=== PATIENT | female | born 1930 | race Caucasian/White ===

== ENCOUNTER 2017-06-03 22:45 | Inpatient (IN) | payer OTHER, BC ==
[~2017-06-03] VITALS: Ht 170.2 cm; Wt 60.1 kg
--- NOTE | ~2017-06-03 | EKG ---
[address] [employer] 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 : 1930 Requested By: Gaye Araujo Order Number: [id number] MD: Ad Carson Measurements Intervals [place] Rate: 73 P: -41 CO: 194 QRS: -30 QRSD: 97 T: 27 QT: 420 QTc: 463 Interpretive Statements Sinus rhythm Left ventricular hypertrophy Baseline wander in lead(s) III Compared to ECG 10/29/2016 12:22:25 Atrial fibrillation no longer present ST (T wave) deviation no longer present Electronically Signed On 06-07-2017 12:55:53 CDT by Ad Carson [email or web address] <ELECTRONICALLY SIGNED> By: Ad Carson MD, [facility] 06/07/17 1255 [id number] [id number] Ad Carson MD, [facility] /EPI
[~2017-06-03 22:45] MED LIST: ASPIR 8181 MG PO; B COMPLEX-VITA1 EACH PO; CALCIUM 600 +1 EAC1 PO; CARDIZEM CD 18180 M3 PO; CEFTIN500 MG PO; COUMADIN 2.5MG2.5 M1 PO; COUMADIN 5 MG TA5 M1 PO; DUONEB 2.5-0.5 M3 ML INH; ELIQUIS5 MG PO; FOSAMAX 70 MG T70 M1 PO; HYDROCHLOROTHIA25 M1 PO; K-DUR10 MEQ PO; KEFLEX500 MG PO; LISINOPRIL10 MG PO; MUCINEX TA600 MG/TAB PO; OMEPRAZOLE 20 M20 M1 PO; OXYBUTYNIN 5 MG5 M1 PO; PLAVIX 75 MG TA75 M1 PO; PREDNISONE 20 M20 MG PO; PREMARIN0.3 MG PO; SIMVASTATIN20 MG PO; TOPROL XL50 MG PO; UNICOMPLEX M TA1 TA1 PO
[2017-06-03 22:46] VITALS: BP 178/91
[2017-06-03] MEDS ORDERED: TYLENOL325 MG (23:58)
[2017-06-03] MEDS ORDERED: VITAMIN D2000 UNIT PO (23:58)
[2017-06-04 02:08] LABS: HEMATOCRIT 37.9 % (37.0-47.0); MCH 30.9 pg (26.0-34.0); MCHC 34.4 g/dL (28.0-37.0); MCV 89.9 fL (80.0-100.0); PLATELET COUNT 184 thou/uL (150-400); RBC 4.22 mil/uL (4.20-5.00); WBC 5.6 thou/uL (4.0-11.0)
[2017-06-04 02:10] LABS: MANUAL DIFF YES
[2017-06-04 02:15] LABS: ANION GAP 7 mmol/L (7-16); BUN 14 mg/dL (7-18); CHLORIDE 100 mmol/L (98-107); CO2 31 mmol/L (21-32); GLUCOSE 143 mg/dL (74-106); POTASSIUM 3.4 mmol/L (3.5-5.1); SODIUM 138 mmol/L (136-145)
[2017-06-04 02:24] LABS: TROPONIN-I < 0.04 ng/mL (<0.04-0.07)
[2017-06-04 02:48] LABS: ABSOLUTE NEUTROPHILS 4.9 thou/uL (1.4-8.2); PLATELET ESTIMATE NORMAL; TOTAL CELL COUNT 100
[2017-06-04 03:34] VITALS: BP 146/72
[2017-06-04 05:04] VITALS: BP 136/69
[2017-06-04 07:34] VITALS: BP 134/81
[2017-06-04 16:00] VITALS: BP 140/79
[2017-06-04 20:00] VITALS: BP 120/62
[2017-06-05 04:00] VITALS: BP 134/59
[2017-06-05 06:29] LABS: HEMATOCRIT 37.2 % (37.0-47.0); HEMOGLOBIN 12.7 gm/dL (12.0-15.0); MCH 30.8 pg (26.0-34.0); MCV 90.5 fL (80.0-100.0); RBC 4.11 mil/uL (4.20-5.00); WBC 5.6 thou/uL (4.0-11.0)
[2017-06-05 06:31] LABS: CALCIUM 8.8 mg/dL (8.5-10.1); CREATININE 1.1 mg/dL (0.6-1.0); POTASSIUM 3.4 mmol/L (3.5-5.1)
[2017-06-05 08:00] VITALS: BP 140/78
[2017-06-05] MEDS ORDERED: ANTIVERT25 MG PO (08:54)
[2017-06-05] MEDS ORDERED: CORTISPORIN OTI10 ML OTIC (08:55)
[2017-06-05 15:39] VITALS: BP 115/69
[2017-06-05 20:05] VITALS: BP 147/77
[2017-06-06 04:00] VITALS: BP 150/82
[2017-06-06 07:29] VITALS: BP 126/65
[2017-06-06 16:25] VITALS: BP 118/66
[2017-06-06 20:00] VITALS: BP 98/50
[2017-06-07 04:00] VITALS: BP 108/56
[2017-06-07 09:11] VITALS: BP 139/65
[2017-06-07 16:18] VITALS: BP 117/65
[2017-06-07 19:41] VITALS: BP 115/54
[2017-06-08 03:29] VITALS: BP 131/59
[2017-06-08 07:33] VITALS: BP 161/87
== END 2017-06-08 18:19 | DRG 149 ==
LOC: ER 22:45 → EROBS 06-04 03:02 → 4E 06-04 03:02
PROVIDERS: Emergency Medicine; Nurse Practitioner Family
DX: H83.02 Labyrinthitis, left ear (principal); H81.10 Benign paroxysmal vertigo, unspecified ear; H81.02 Meniere's disease, left ear; Z96.642 Presence of left artificial hip joint; I10 Essential (primary) hypertension; E78.5 Hyperlipidemia, unspecified; I48.91 Unspecified atrial fibrillation; H91.92 Unspecified hearing loss, left ear; I25.10 Atherosclerotic heart disease of native coronary artery without angina pectoris; Z90.49 Acquired absence of other specified parts of digestive tract; Z90.710 Acquired absence of both cervix and uterus; Z98.49 Cataract extraction status, unspecified eye; Z88.6 Allergy status to analgesic agent; Z88.2 Allergy status to sulfonamides; Z88.7 Allergy status to serum and vaccine; Z88.8 Allergy status to other drugs, medicaments and biological substances; I25.2 Old myocardial infarction; Z82.49 Family history of ischemic heart disease and other diseases of the circulatory system; Z80.9 Family history of malignant neoplasm, unspecified; Z79.899 Other long term (current) drug therapy
CPT/HCPCS: 10783

== ENCOUNTER 2017-12-23 17:13 | Inpatient (IN) | payer OTHER, BC ==
[~2017-12-23] VITALS: Ht 170.2 cm; Wt 59.4 kg
--- NOTE | ~2017-12-23 | HC ---
[facility] [place] [address] CONSULTATION Name: EVERARDO NEFF Room #: 405-P [facility] IN M.R.#: [id number] Admission: 12/23/17 Attend Phys: Tyrell Keller MD Discharge: 12/26/17 Date of : [birth year] Report #: [id number] THIS REPORT FOR: //name// CC: Tyrell Osborn DATE OF SERVICE: 12/25/2017 HISTORY OF PRESENT ILLNESS: The patient is an 87-year-old white female who was admitted after having a fall with some dizziness and a vertiginous episode. She complained of left hip pain. She has a prior left hip prosthesis and was thought to have a small left hip periprosthetic fracture there, although it may be an old finding. She has been seen by Orthopedics and the recommendation is for partial weightbearing and see how she does. We are seeing her in rehabilitation medicine consultation. PAST MEDICAL HISTORY: Includes prior left hip replacement, history of laparoscopic cholecystectomy, tonsillectomy, appendectomy, hysterectomy, hypertension, hyperlipidemia, ST elevation [place], cataracts, and atrial fibrillation. HABITS: No history of tobacco or alcohol abuse. FAMILY HISTORY: Heart disease, cancer, and hypertension. ALLERGIES: Multiple allergies are as noted. SOCIAL HISTORY: Lives in a house alone, does not utilize any gait aids, 4 steps in. She does have a couple of walkers from her prior hip surgery, but was not needing to use them typically. She does have railings in the house as it is noted to be a tri-level. REVIEW OF SYSTEMS: Did not offer any current complaints of chest pain, shortness of breath, or abdominal discomfort. Left hip discomfort appears to be improving. No other focal extremity pain complaints. PHYSICAL EXAMINATION: GENERAL: An 87-year-old white female, in no obvious distress. She is hard of hearing. VITAL SIGNS: Temperature is 98.8, pulse 71, respirations 15, blood pressure 133/72. The patient is alert. HEENT: Appeared to be benign. NEUROLOGIC: Cranial nerves are grossly intact. Facies are symmetric. She has functional range of motion of both upper extremities with strength of grade 4-4+/5. DTRs are trace to 1. In her lower extremities, she has the old left hip incision, which is well healed. No focal calf swelling. She can dorsiflex [facility] [address] [place] [address] CONSULTATION Name: EVERARDO NEFF Room #: 405-P [facility] IN M.R.#: [id number] Admission: 12/23/17 Attend Phys: Tyrell Keller MD Discharge: 12/26/17 Date of : [birth year] Report #: [id number] the left ankle. Right lower extremity strength is probably a grade 4/5. Left lower extremity limited testing, was probably a grade 4-. She is min assist for sit to stand. Gait, 40 feet min assist with a front-wheeled walker. Bed mobility is min assist. ASSESSMENT: An 87-year-old white female with the following problem list: 1. Left periprosthetic hip fracture, being limited to partial weightbearing. She is being handled nonsurgically at this point. 2. Fall, thought secondary to dizziness. 3. History of dizziness and vertiginous episode, which resolved. 4. Atrial fibrillation, which is stable. 5. Hypertension. PLAN: The rehab unit is currently full at [facility]. We will need to consider other rehab therapy options as you are doing. Thank you for asking us to assist in this patient's care. <ELECTRONICALLY SIGNED> By: Geovanni Stallings MD 01/04/18 1226 1139 2350 Geovanni Stallings MD /[facility]
--- NOTE | ~2017-12-23 | EKG ---
[address] [address] ELECTROCARDIOGRAM REPORT Name: EVERARDO NEFF Room #: 405-P ADM IN M.R.#: [id number] Admission: 12/23/17 Attend Phys: Tyrell Keller MD Discharge: Date of : [birth year] Report #: [id number] THIS REPORT FOR: //name// 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 : 1930 Requested By: Salvador Campuzano Order Number: [id number] MD: Ad Carson Measurements Intervals [place] Rate: 92 P: 60 IN: 187 QRS: -32 QRSD: 98 T: 47 QT: 383 QTc: 474 Interpretive Statements Sinus rhythm Left axis deviation Compared to ECG 06/03/2017 22:59:34 No significant change was found Electronically Signed On 12-24-2017 8:32:57 [employer]AX ASSOCIATE ATTORNEY by Ad Carson [email or web address] <ELECTRONICALLY SIGNED> By: Ad Carson MD, [facility] 12/24/17 0832 1724 23 Ad Carson MD, [facility] /EPI
--- NOTE | ~2017-12-23 | HC ---
[facility] [place] [address] CONSULTATION Name: EVERARDO NEFF Room #: 405-P ADM IN M.R.#: [id number] Admission: 12/23/17 Attend Phys: Tyrell Keller MD Discharge: Date of : [birth year] Report #: [id number] THIS REPORT FOR: //name// CC: Tyrell Osborn CHIEF COMPLAINT: Left femur fracture. HISTORY OF PRESENT ILLNESS: This 87-year-old female remains functionally independent and ambulating at home with minimal assistance. She has had a long history of problems with the left hip and femur with an old fracture and hip replacement, followed by revision surgery many years ago. She has been ambulatory, but with some intermittent discomfort. She had a fall yesterday with increased discomfort of the left hip and femur. She was able to get up and stand and walk using a walker and came by private vehicle with a friend to the hospital for evaluation. 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 There is no evidence of fracture about the pelvis or upper femur. There is an area of chronic irregularity at the distal tip of the stem. There appears to be callus formation, suggesting this is a somewhat chronic or subacute process. There is, however, a suggestion that there may be a crack there which may have been caused or aggravated by this recent fall. At the time of my evaluation, she is alert and oriented and seems to understand the situation well. She notes she does have some left thigh discomfort which is mildly aggravated by deep palpation or aggressive movement; however, the femur seems to be stable. She has good movement of the hip without much hip joint pain. She has good movement of the knee without knee joint pain. The lower leg, foot and ankle appear to be normal. X-rays of the left hip and femur reveal an old cemented revision hip arthroplasty. The tip of the stem is prominent through the lateral aspect of the femoral shaft. There is surrounding callus formation which appears to be chronic. There is also a lucent line transversely at this level, which could be a crack of indeterminate age. There is no evidence of a more significant or displaced fracture. The hip itself seems to be stable. I have had a lengthy discussion with the patient reviewing this issue. It is difficult to say whether there is a new fracture or whether this is simply the remnant of previous stress fracture, which has been symptomatically aggravated by her recent fall. Therefore, we have discussed the option of either nonsurgical management protecting the femur with limited weightbearing and allow gradually advancing activity or prophylactic surgical repair using a lateral plate which will require cerclage wires proximally and screws distally. She seems to understand these options well and at this point feels her symptoms are mild and manageable. I note that she has already been ambulating on the limb after the fall and was able to manage this independently at [place] [address] CONSULTATION Name: EVERARDO NEFF NEIL [facility] 405[facility] IN M.R.#: [id number] Admission: 12/23/17 Attend Phys: Tyrell Keller MD Discharge: Date of : [birth year] Report #: [id number] to the hospital. Given this, she is reluctant to consider any surgery and would like to try to simply protect the femur and allow this to heal in if possible. She understands that if there is more pain or certainly any displacement, then we will have to reconsider the option of surgical stabilization. She understands there is some possibility the fracture might displace, become a more difficult situation. At this point, I think conservative nonsurgical treatment is a reasonable option. Given this, we will allow her to go ahead and eat and try to start some physical therapy for ambulation using a walker and partial weightbearing. If she is making good progress, then I think she probably needs a period of assistance in an extended care facility until she reaches better strength and independence. Certainly if there is more pain or evidence of fracture, movement or displacement, then she will need to reconsider the option of surgical stabilization. <ELECTRONICALLY SIGNED> By: Geovanni Flores MD 12/25/17 1125 1006 1059 Geovanni Flores MD /nt
[~2017-12-23 17:13] MED LIST changes: +ANTIVERT25 MG PO; +CORTISPORIN OTI10 ML OTIC; +TYLENOL325 MG; +VITAMIN D2000 UNIT PO
[2017-12-23 17:23] VITALS: BP 143/77
[2017-12-23] MEDS ORDERED: LISINOPRIL10 MG PO (17:45)
[2017-12-23 17:54] LABS: ABSOLUTE NEUTROPHILS 8.1 thou/uL (1.4-8.2); BASOPHILS 0.8 % (0.0-2.0); EOSINOPHILS 0.7 % (0.0-3.0); HEMATOCRIT 37.9 % (37.0-47.0); LYMPHOCYTES 6.7 % (24.0-44.0); MCH 31.1 pg (26.0-34.0); MCHC 34.2 g/dL (28.0-37.0); MCV 91.1 fL (80.0-100.0); MONOCYTES 6.5 % (1.0-8.0); PLATELET COUNT 171 thou/uL (150-400); POLYS 85.3 % (36.0-66.0); RBC 4.16 mil/uL (4.20-5.00); RDW 12.5 % (10.5-14.5); WBC 9.5 thou/uL (4.0-11.0)
[2017-12-23 18:02] LABS: ANION GAP 7 mmol/L (7-16); BUN 21 mg/dL (7-18); CALCIUM 9.2 mg/dL (8.5-10.1); CHLORIDE 101 mmol/L (98-107); CO2 27 mmol/L (21-32); CREATININE 1.2 mg/dL (0.6-1.0); GLUCOSE 113 mg/dL (74-106); POTASSIUM 3.6 mmol/L (3.5-5.1); SODIUM 135 mmol/L (136-145)
[2017-12-23 18:07] LABS: PROTIME 10.5 Seconds (9.3-11.4)
[2017-12-23 18:10] LABS: ALBUMIN 3.9 g/dL (3.4-5.0); SGOT 20 U/L (15-37); SGPT 30 U/L (30-65); TOTAL BILIRUBIN 0.9 mg/dL (<0.1-1.0); TOTAL PROTEIN 6.5 g/dL (6.4-8.2); TROPONIN-I < 0.04 ng/mL (<0.06)
[2017-12-23 19:09] LABS: URINE BILIRUBIN NEGATIVE (Negative); URINE BLOOD NEGATIVE (Negative); URINE CLARITY CLEAR; URINE COLOR YELLOW; URINE GLUCOSE-RANDOM* NEGATIVE (Negative); URINE KETONES NEGATIVE (Negative); URINE LEUKOCYTES NEGATIVE (Negative); URINE NITRITE NEGATIVE (Negative); URINE PROTEIN (DIPSTICK) NEGATIVE (Negative); URINE SPECIFIC GRAVITY <= 1.005 (1.005-1.035); URINE UROBILINOGEN 0.2 E.U./dl (0.2-1.0)
[2017-12-23 22:28] VITALS: BP 136/70
[2017-12-23 22:35] VITALS: BP 130/68
[2017-12-23 23:17] VITALS: BP 144/76
[2017-12-24 04:59] LABS: CALCIUM 8.1 mg/dL (8.5-10.1); CREATININE 0.9 mg/dL (0.6-1.0); POTASSIUM 3.5 mmol/L (3.5-5.1)
[2017-12-24 05:32] LABS: HEMATOCRIT 33.7 % (37.0-47.0); HEMOGLOBIN 11.3 gm/dL (12.0-15.0); MCH 30.9 pg (26.0-34.0); MCHC 33.6 g/dL (28.0-37.0); RBC 3.66 mil/uL (4.20-5.00); RDW 12.8 % (10.5-14.5); WBC 8.1 thou/uL (4.0-11.0)
[2017-12-24 09:22] VITALS: BP 139/93
[2017-12-24 16:20] VITALS: BP 125/78
[2017-12-24 19:44] VITALS: BP 112/58
[2017-12-25 04:00] VITALS: BP 104/48
[2017-12-25 07:13] VITALS: BP 133/72
[2017-12-25 15:33] VITALS: BP 124/72
[2017-12-25 19:00] VITALS: BP 106/55
[2017-12-26 04:00] VITALS: BP 117/60
[2017-12-26 08:00] VITALS: BP 124/77
[2017-12-26] MEDS ORDERED: HYDROCODONE-AP1 EAC6 PO (09:12)
[2017-12-26] MEDS ORDERED: MIRALAX17 GM PO (09:12)
[2017-12-26] MEDS ORDERED: ELIQUIS2.5 MG PO (09:16)
[2017-12-26 10:14] VITALS: BP 124/77
[2017-12-26 17:13] VITALS: BP 94/53
== END 2017-12-26 19:02 | DRG 559 ==
LOC: ER 17:13 → 4N 18:43 → EROBS 18:43 → 4N 22:34
PROVIDERS: Hospitalist; Physician Assistant
DX: M97.02XA Periprosthetic fracture around internal prosthetic left hip joint, initial encounter (principal); N17.0 Acute kidney failure with tubular necrosis; Z96.642 Presence of left artificial hip joint; I10 Essential (primary) hypertension; E78.5 Hyperlipidemia, unspecified; I48.91 Unspecified atrial fibrillation; Z60.2 Problems related to living alone; W18.39XA Other fall on same level, initial encounter; Y93.89 Activity, other specified; Z79.899 Other long term (current) drug therapy; Z88.5 Allergy status to narcotic agent; Z98.42 Cataract extraction status, left eye; Z88.2 Allergy status to sulfonamides; Z88.8 Allergy status to other drugs, medicaments and biological substances; Z90.49 Acquired absence of other specified parts of digestive tract; Z90.710 Acquired absence of both cervix and uterus; Z98.41 Cataract extraction status, right eye; Z88.7 Allergy status to serum and vaccine; I25.2 Old myocardial infarction; Z82.49 Family history of ischemic heart disease and other diseases of the circulatory system; Z80.9 Family history of malignant neoplasm, unspecified; Y92.89 Other specified places as the place of occurrence of the external cause; Y99.8 Other external cause status
CPT/HCPCS: 10091

== ENCOUNTER 2019-05-16 21:04 | Emergency (ER) | payer OTHER, BC ==
[~2019-05-16] VITALS: Ht 170.2 cm; Wt 59.0 kg
[~2019-05-16 21:04] MED LIST changes: +ELIQUIS2.5 MG PO; +HYDROCODONE-AP1 EAC6 PO; +MIRALAX17 GM PO
[2019-05-16 22:13] LABS: URINE BILIRUBIN 1+ (Negative); URINE BLOOD 2+ (Negative); URINE CLARITY CLEAR; URINE COLOR YELLOW; URINE GLUCOSE-RANDOM* NEGATIVE (Negative); URINE KETONES 2+ (Negative); URINE LEUKOCYTES-REFLEX NEGATIVE (Negative); URINE NITRITE-REFLEX NEGATIVE (Negative); URINE PROTEIN (DIPSTICK) 2+ (Negative); URINE UROBILINOGEN 0.2 E.U./dl (0.2-1.0)
[2019-05-16 22:29] LABS: SQUAMOUS 0-3 Few /LPF (0-3); URINE RBC 3-10 Few /HPF (0-2); URINE WBC-REFLEX 0-5 Rare /HPF (0-5)
[2019-05-16 22:30] LABS: BACTERIA-REFLEX 1-9 Few /HPF (None Seen); CASTS None Seen /LPF (None Seen); CRYSTALS None Seen /LPF (None Seen); MUCUS 4-6 Moderate strn/LPF (None Seen)
[2019-05-17] MEDS ORDERED: ZOCOR20 MG PO ×2 (00:12)
[2019-05-17] MEDS ORDERED: FOSAMAX 70 MG T70 MG PO ×2 (00:13)
[2019-05-17] MEDS ORDERED: KEFLEX500 M1 PO ×2 (00:13)
[2019-05-17 00:24] LABS: ABSOLUTE NEUTROPHILS 5.3 thou/uL (1.4-8.2); BASOPHILS 0.4 % (0.0-2.0); EOSINOPHILS 0.1 % (0.0-3.0); HEMATOCRIT 39.7 % (37.0-47.0); HEMOGLOBIN 13.5 gm/dL (12.0-15.0); LYMPHOCYTES 5.5 % (24.0-44.0); MCH 30.8 pg (26.0-34.0); MCV 90.5 fL (80.0-100.0); MONOCYTES 5.8 % (1.0-8.0); PLATELET COUNT 137 thou/uL (150-400); POLYS 88.2 % (36.0-66.0); RBC 4.39 mil/uL (4.20-5.00); RDW 12.6 % (10.5-14.5)
[2019-05-17 00:32] LABS: ANION GAP 11 mmol/L (7-16); BUN 17 mg/dL (7-18); CALCIUM 8.9 mg/dL (8.5-10.1); CHLORIDE 94 mmol/L (98-107); CO2 24 mmol/L (21-32); CREATININE 1.3 mg/dL (0.6-1.0); GLUCOSE 122 mg/dL (74-106); POTASSIUM 3.7 mmol/L (3.5-5.1); SODIUM 129 mmol/L (136-145)
[2019-05-17 00:42] LABS: ALBUMIN 3.6 g/dL (3.4-5.0); SGOT 30 U/L (15-37); SGPT 60 U/L (30-65); TOTAL PROTEIN 7.2 g/dL (6.4-8.2); TROPONIN-I <0.06 ng/mL (<0.06)
[2019-05-17] MEDS ORDERED: ZOFRAN ODT4 MG PO ×2 (03:47)
[2019-05-17] MEDS ORDERED: ANTIVERT25 MG PO ×2 (03:47)
[2019-05-17 04:42] VITALS: BP 143/65
--- NOTE | 2019-05-17 07:43 | EKG ---
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 : 1930 Requested By: Ewa Chambers Order Number: [id number] MD: Ad Carson Measurements Intervals [place] Rate: 100 P: 29 RI: 187 QRS: -28 QRSD: 85 T: 49 QT: 340 QTc: 439 Interpretive Statements Sinus tachycardia Poor R wave progression Borderline left axis deviation Compared to ECG 12/23/2017 17:24:18 No significant change was found Electronically Signed On 05-17-2019 7:43:21 CDT by Ad Carson [email or web address] ��������������������������������������������� <ELECTRONICALLY SIGNED> ���������������������������������������� By: Ad Carson MD, [facility] ��������������������������������������������� 05/17/19 0743 44 44 Ad Carson MD, [facility] /EPI
== END 2019-05-17 04:43 | disposition home or self-care (01) ==
LOC: ER 21:04
PROVIDERS: Nurse Practitioner Family
DX: R42 Dizziness and giddiness (principal); R11.0 Nausea; I10 Essential (primary) hypertension; I48.91 Unspecified atrial fibrillation; E78.5 Hyperlipidemia, unspecified; Z96.642 Presence of left artificial hip joint; Z90.49 Acquired absence of other specified parts of digestive tract; Z90.710 Acquired absence of both cervix and uterus; Z88.2 Allergy status to sulfonamides; Z88.5 Allergy status to narcotic agent; Z88.8 Allergy status to other drugs, medicaments and biological substances

== ENCOUNTER 2019-05-20 10:01 | Inpatient (IN) | payer OTHER, BC ==
[~2019-05-20] VITALS: Ht 170.2 cm; Wt 63.4 kg
--- NOTE | ~2019-05-20 | HC ---
[facility] [place] [address] CONSULTATION Name: EVERARDO NEFF Room #: 360-P [facility] IN .R.#: [id number] Admission: 05/20/19 ������������������ Attend Phys: Simon Gooden MD Discharge: 05/23/19 ������������������ Date of : [birth year] Report #: [id number] THIS REPORT FOR: //name// CC: Simon Osborn HISTORY OF PRESENT ILLNESS: The patient is an 88-year-old white female, recently diagnosed with vertigo, placed on Zofran and Antivert, was having problems with persistent dizziness. She was admitted with acute renal failure and dehydration. She has had worsening renal function. She has been diagnosed with acute tubular necrosis. She has been made a no code blue and refuses dialysis. We are seeing her in rehabilitation medicine consultation. PAST MEDICAL HISTORY: Includes prior left hip replacement, history of laparoscopic cholecystectomy, appendectomy, tonsillectomy, hysterectomy, hypertension, hyperlipidemia, ST elevation [place], cataracts, atrial fibrillation. HABITS: No history of tobacco or alcohol abuse. FAMILY HISTORY: Heart disease, cancer, hypertension. ALLERGIES: Multiple drug allergies are noted. SOCIAL HISTORY: She has been living in a house alone. She did not utilize gait aids, although at times, she would use a cane or walker depending upon how she felt. She was still doing some limited driving. She does have involved neighbors. REVIEW OF SYSTEMS: Currently, she complains of significant nausea. She complains of significant weakness. PHYSICAL EXAMINATION: Limited. She had the emesis basin in front of her. VITAL SIGNS: Temperature 37, pulse 91, respirations 16, blood pressure 124/59. NEUROMUSCULOSKELETAL: She has generalized weakness. She has been mod assist with her last sit to stand. She last was able to ambulate 20 feet min assist with a front-wheeled walker. She feels too weak to try to ambulate this morning. She is also having some problems with swallowing and Speech Therapy has been consulted. ASSESSMENT: An 88-year-old white female with the following problem list: Worsening renal failure, noted acute tubular necrosis per Nephrology. Her lab now reveals creatinine rapidly worsening from 1.3 on the 05/16/2019 to now up to 5.9. Discussed with nursing staff. Notes that hospice is being considered in light of her rapidly worsening renal failure and her desire not to undergo dialysis. [address] [address] CONSULTATION Name: EVERARDO NEFF Room #: 360-P [facility] IN .R.#: [id number] Admission: 05/20/19 ������������������ Attend Phys: iSmon Gooden MD Discharge: 05/23/19 ������������������ Date of : [birth year] Report #: [id number] PLAN: Limited therapies at this point. She does not, at this point, meet criteria for an acute in-hospital inpatient rehabilitation stay. ��������������������������������������������� ���������������������������������������� By: ��������������������������������������������� [phone] Geovanni Stallings MD /nt
--- NOTE | ~2019-05-20 | HC ---
[facility] [place] [address] CONSULTATION Name: EVERARDO NEFF Room #: 360-P [facility] IN ..#: [id number] Admission: 05/20/19 ������������������ Attend Phys: Simon Gooden MD Discharge: ������������������ Date of : [birth year] Report #: [id number] THIS REPORT FOR: //name// CC: Simon Osborn DATE OF SERVICE: 05/20/2019 NEPHROLOGY CONSULTATION REASON FOR CONSULTATION: Acute kidney injury. HISTORY OF PRESENT ILLNESS: This 88-year-old patient has had a 1-week history of nausea, dizziness, some diarrhea, poor intake. She came to this hospital 3 days ago feeling dizzy and nauseated, was felt to have vertigo and sent home. At that time, her creatinine was 1.3 up from a baseline of less than 1. She now presents again with nausea, dizziness and is found to have a serum sodium that is fallen to 117, which was 129 three days ago and a serum creatinine that is elevated to 4. PAST MEDICAL HISTORY: The patient has a history of hypertension. She had dental work and has been taking Keflex at fairly large doses for several weeks. HOME MEDICATIONS: Include metoprolol 50 mg daily, Zocor 20 mg daily, Fosamax 70 mg daily, Keflex 500 mg q.i.d., omeprazole 20 mg daily, Caltrate. REVIEW OF SYSTEMS: GENERAL: She has been feeling poorly, very weak. EYES: Her vision is okay. ENT: Very poor hearing. Mouth is dry. ENDOCRINE: No diabetes. RESPIRATORY: Denies shortness of air or pleuritic pain. CARDIAC: No chest pain or angina. She does have a history of atrial fibrillation, has been on Eliquis in the past. GASTROINTESTINAL: She has had the nausea. She has had some diarrhea. GENITOURINARY: Making very little urine. NEUROLOGIC: Just generalized weakness. PAST SURGICAL HISTORY: Does include hysterectomy and a hip arthroplasty. PHYSICAL EXAMINATION: GENERAL: This is an elderly patient looking her stated age. She is very thin, somewhat emaciated. SKIN: Shows somewhat poor turgor. SKELETAL: Appears to be poorly nourished. [facility] [address] [place] [address] CONSULTATION Name: AISHWARYAEVERARDO NEIL Room #: 360-P [facility] IN [facility]#: [id number] Admission: 05/20/19 ������������������ Attend Phys: Simon Gooden MD Discharge: ������������������ Date of : [birth year] Report #: [id number] HEENT: Extraocular movements are full. Vision is intact. Hearing is poor, particularly on the right. Tongue is dry. NECK: Supple. Neck veins are flat. CHEST: Clear to auscultation. HEART: Regular. ABDOMEN: Soft and nontender. EXTREMITIES: Show no edema. NEUROLOGIC: Intact. LABORATORY DATA: As mentioned, the urine shows a specific gravity 1.025 with some fine granular casts. The hemoglobin is 12. Sodium is only 117 with potassium of 3.2. Platelets are only 98,000. Creatinine 4 and BUN 40. 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 However, she does appear to be volume depleted as well. We are giving her copious IV fluids, hopefully the urine will return. Although, acute tubular necrosis is certainly a possibility given she has been sick for some time. We will also replete her potassium and I think repletion of her IV fluids with saline should help correct her low serum sodium. For completeness, I will check CPK as she was down for some period of time as well. We will follow her closely. ��������������������������������������������� ���������������������������������������� By: ��������������������������������������������� 1346 1548 Warren Talley MD /nt
[~2019-05-20 10:01] MED LIST changes: +FOSAMAX 70 MG T70 MG PO; +KEFLEX500 M1 PO; +ZOCOR20 MG PO; +ZOFRAN ODT4 MG PO
[2019-05-20 10:02] VITALS: BP 92/47
[2019-05-20 11:00] LABS: ABSOLUTE NEUTROPHILS 9.4 thou/uL (1.4-8.2); BASOPHILS 0.3 % (0.0-2.0); EOSINOPHILS 0.3 % (0.0-3.0); HEMATOCRIT 34.5 % (37.0-47.0); LYMPHOCYTES 1.2 % (24.0-44.0); MCH 30.8 pg (26.0-34.0); MCHC 34.7 g/dL (28.0-37.0); MCV 88.9 fL (80.0-100.0); MONOCYTES 3.3 % (1.0-8.0); POLYS 94.9 % (36.0-66.0); RBC 3.88 mil/uL (4.20-5.00); RDW 13.4 % (10.5-14.5); WBC 9.9 thou/uL (4.0-11.0)
[2019-05-20 11:16] LABS: ANION GAP 12 mmol/L (7-16); BUN 40 mg/dL (7-18); CALCIUM 7.4 mg/dL (8.5-10.1); CHLORIDE 86 mmol/L (98-107); CO2 19 mmol/L (21-32); GLUCOSE 133 mg/dL (74-106); POTASSIUM 3.2 mmol/L (3.5-5.1); TROPONIN-I <0.06 ng/mL (<0.06)
[2019-05-20 11:19] LABS: SODIUM 117 mmol/L (136-145)
[2019-05-20 11:21] LABS: PLATELET COUNT 98 thou/uL (150-400)
[2019-05-20 12:39] LABS: URINE BILIRUBIN NEGATIVE (Negative); URINE BLOOD 2+ (Negative); URINE CLARITY CLOUDY; URINE COLOR YELLOW; URINE GLUCOSE-RANDOM* NEGATIVE (Negative); URINE KETONES NEGATIVE (Negative); URINE LEUKOCYTES-REFLEX TRACE (Negative); URINE NITRITE-REFLEX NEGATIVE (Negative); URINE PROTEIN (DIPSTICK) 1+ (Negative); URINE SPECIFIC GRAVITY 1.025 (1.005-1.035); URINE UROBILINOGEN 0.2 E.U./dl (0.2-1.0)
[2019-05-20 12:47] LABS: AMORPHOUS URATES Many /LPF (None Seen); BACTERIA-REFLEX None Seen /HPF (None Seen); SQUAMOUS 4-10 Moderate /LPF (0-3); URINE RBC 3-10 Few /HPF (0-2); URINE WBC-REFLEX 0-5 Rare /HPF (0-5)
[2019-05-20 12:48] LABS: FINE GRANULAR CASTS 0-3 Few /LPF (None Seen)
[2019-05-20 13:50] VITALS: BP 107/59
[2019-05-20 13:53] VITALS: BP 90/45
[2019-05-20 14:09] LABS: URINE CREATININE-RANDOM* 99.4 mg/dL
--- NOTE | 2019-05-20 15:40 | NUR ---
ASSESSMENT: CM REVIEWED CHART AND MET WITH PATIENT AND HER GODDAUGTHER AT THE BEDSIDE. PT WAS ADMITTED FROM HOME WHERE SHE LIVES ALONE. PT REPORTS LIVING IN A SPLIT LEVEL HOME WITH ABOUT 4 STEPS TO ENTER THE HOME WITH HANDRAILS AND ABOUT 4 STEPS TO THE UPPER LEVEL AND 4 STEPS WITH HANDRAILS TO THE LOWER LEVEL. PT REPORTS SHE AMBULATES USING A CANE AND A WALKER. PT REPORTS SHE STILL DRIVE SHORT DISTANCES AND ALSO HAS NEIGHBORS WHO DRIVE HER PLACES AND FRIENDS. PT REPORTS SHE HAS A GRAB BAR IN THE SHOWER WELL A SHOWER CHAIR. PT REPORTS SHE HAS BEEN TO [facility] IN THE PAST AFTER BREAKING HER FEMUR LAST YEAR AND REPORTS IF SHE NEEDS SNF SHE PREFERAL SENT. PT/OT [facility] ARE STILL PENDING BUT CM SENT REFERRAL TO [facility]. CM WILL CONTINUE TO FOLLOW TO ASSIST NEEDED.
[2019-05-20 16:02] LABS: ALBUMIN 2.6 g/dL (3.4-5.0); CREATININE 4.1 mg/dL (0.6-1.0); PHOSPHORUS 2.8 mg/dL (2.5-4.9); POTASSIUM 3.3 mmol/L (3.5-5.1)
[2019-05-20 19:17] VITALS: BP 111/58
--- NOTE | 2019-05-20 20:25 | NUR ---
[age] OLD FEMALE ADMITTED TO 3W ROOM 360. PT WAS BROUGHT INTO THE ER AFTER PT HAD A FALL AT HOME IN HER BATHROOM. PT IS ALERT AND ORIENTED TIMES FOUR. VSS, 98%RA, JORGENSEN IN PLACE. PT C/O BACK PAIN. PT TOLERATES MEDS AND MEALS. PT UP TO BSC WITH ASSIST OF ONE, PT FAMILY AT BEDSIDE DURING ADMISSION ASSESSMENT. WILL CONTINUE TO MONITOR.
--- NOTE | 2019-05-20 22:07 | EKG ---
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 : 1930 Requested By: Aldo Rajan Order Number: [id number] MD: Sheng Ortiz Measurements Intervals [place] Rate: 84 P: 69 RI: 211 QRS: -36 QRSD: 104 T: 17 QT: 403 QTc: 477 Interpretive Statements Sinus rhythm Atrial premature complexes Low voltage, precordial leads Poor R-wave progression Compared to ECG 05/16/2019 21:45:01 Low QRS voltage now present Sinus tachycardia no longer present Electronically Signed On 05-20-2019 22:07:41 CDT by Sheng Ortiz [email or web address] ��������������������������������������������� <ELECTRONICALLY SIGNED> ���������������������������������������� By: Sheng Ortiz MD ��������������������������������������������� 05/20/19 2207 1037 1037 Sheng Ortiz MD /EPI
[2019-05-21 03:14] VITALS: BP 126/65
--- NOTE | 2019-05-21 03:48 | NUR ---
Pt. rested quietly during the night when checked on during frequent rounds. She did c/o back pain and was given po pain meds (see emar) with relief noted. Bed alarm is on.
[2019-05-21 05:27] LABS: ABSOLUTE NEUTROPHILS 8.7 thou/uL (1.4-8.2); HEMATOCRIT 33.7 % (37.0-47.0); HEMOGLOBIN 11.4 gm/dL (12.0-15.0); LYMPHOCYTES 1.8 % (24.0-44.0); MCH 30.4 pg (26.0-34.0); MCHC 33.9 g/dL (28.0-37.0); MCV 89.7 fL (80.0-100.0); MONOCYTES 2.2 % (1.0-8.0); PLATELET COUNT 99 thou/uL (150-400); RBC 3.76 mil/uL (4.20-5.00); RDW 13.8 % (10.5-14.5); WBC 9.1 thou/uL (4.0-11.0)
[2019-05-21 05:45] LABS: CALCIUM 6.5 mg/dL (8.5-10.1); CREATININE 4.7 mg/dL (0.6-1.0); MAGNESIUM 2.6 mg/dL (1.8-2.4); POTASSIUM 4.2 mmol/L (3.5-5.1)
[2019-05-21 07:23] VITALS: BP 118/63
[2019-05-21] MEDS ORDERED: ASPIRIN325 PO ×2 (08:03)
[2019-05-21 11:28] VITALS: BP 114/65
[2019-05-21 16:09] VITALS: BP 121/70
--- NOTE | 2019-05-21 16:28 | 2DMMODE ---
[facility] [address] [place] [address] 2 D/M-MODE ECHOCARDIOGRAM Name: EVERARDO NEFF Room #: 360-P [facility]#: [id number] ������������� Admission: 05/20/19 ������������� Attend Phys: Simon Gooden MD Discharge: ��� ������������� ��� Date of : [birth year] Date of Service: 05/21/19 1627 �� Report #: [id number] �������� ��������������������������������������������[id number] THIS REPORT FOR: //name// APPROVED REPORT Study performed: 05/21/2019 13:19:22 EXAM: Comprehensive 2D, Doppler, and color-flow Echocardiogram Patient Location: In-Patient Room #: 360 Status: routine BSA: 1.73 HR: 82 bpm BP: 118/63 mmHg Other Information Study Quality: Adequate Indications Hypotension Dyspnea 2D Dimensions IVSd: 10.15 (7-11mm) LVOT Diam: 21.28 (18-24mm) LVDd: 46.79 mm PWd: 10.94 (7-11mm) Ascending Ao: 39.07 (22-36mm) LVDs: 32.17 (25-40mm) Left Atrium: 39.44 (27-40mm) Aortic Root: 34.74 mm Volumes Left Atrial Volume (Systole) Single Plane 4CH: 46.58 mL Single Plane 2CH: 76.64 mL Aortic Valve AoV Peak Julio César.: 1.86 m/s AO Peak Gr.: 15.40 mmHg LVOT Max P.64 mmHg LVOT Max V: 0.95 m/s YULIANA Vmax: 1.83 cm2 AI Vmax: 2.81 m/s AI Schuyler: 1.46 m/s2 AI PHT: 562.95 ms Mitral Valve E/A Ratio: 1.1 [facility] [place] [address] 2 D/M-MODE ECHOCARDIOGRAM [facility].#: [id number] ������������� Admission: 05/20/19 ������������� Attend Phys: Simon Gooden MD Discharge: ��� ������������� ��� Date of : [birth year] Date of Service: 05/21/19 1627 �� Report #: [id number] �������� ��������������������������������������������[id number] MV Decel. Time: 209.08 ms MV E Max Julio César.: 0.91 m/s MV A Julio César.: 0.85 m/s MV PHT: 60.63 ms Pulmonary Vein P Vein S: 0.57 m/s P Vein A: 0.39 m/s P Vein D: 0.32 m/s P Vein A Dur.: 134.9 msec P Vein S/D Ratio: 1.78 Tricuspid Valve TR Peak Julio César.: 3.30 m/s TR Peak Gr.: 43.50 mmHg Left Ventricle The left ventricle is normal size. Borderline concentric left ventricular hypertrophy. The left ventricular systolic function is normal. The left ventricular ejection fraction is within the normal range. LVEF is >55%. Grade II - pseudonormal filling dynamics. Right Ventricle The right ventricle is normal size. There is normal right ventricular wall thickness. The right ventricular systolic function is normal. Atria Left atrium is borderline dilated. The interatrial septum is intact with no evidence for an atrial septal defect. Right atrium is mildly dilated. Aortic Valve The aortic valve is normal in structure. Trace aortic regurgitation. There is no aortic valvular stenosis. Mitral Valve The mitral valve is normal in structure. Trace mitral regurgitation. No evidence of mitral valve stenosis. There is no evidence of mitral valve prolapse. Tricuspid Valve The tricuspid valve is normal in structure. There is no tricuspid valve stenosis. Mild tricuspid regurgitation. Pulmonic Valve The pulmonary valve is normal in structure. There is no pulmonic [address] [address] 2 D/M-MODE ECHOCARDIOGRAM Name: EVERARDO NEFF Room #: 360-P [facility]#: [id number] ������������� Admission: 05/20/19 ������������� Attend Phys: Simon Gooden MD Discharge: ��� ������������� ��� Date of : [birth year] Date of Service: 05/21/19 1627 �� Report #: [id number] �������� ��������������������������������������������[id number] valvular regurgitation. Great Vessels The aortic root is normal in size. IVC is normal in size and collapses >50% with inspiration. Pericardium There is no pericardial effusion. Critical Notification Critical Value: No <Conclusion> The left ventricle is normal size. LVEF is >55%. Left atrium is borderline dilated. Right atrium is mildly dilated. The aortic valve is normal in structure. Trace aortic regurgitation. The mitral valve is normal in structure. Trace mitral regurgitation. The tricuspid valve is normal in structure. Mild tricuspid regurgitation. The pulmonary valve is normal in structure. There is no pulmonic valvular regurgitation. There is no pericardial effusion. ��������������������������������������������� <ELECTRONICALLY SIGNED> ���������������������������������������� By: Sheng Ortiz MD ��������������������������������������������� 05/21/19 1627 1627 1627 Sheng Ortiz MD /INF
[2019-05-21 19:33] VITALS: BP 128/69
--- NOTE | 2019-05-21 19:57 | NUR ---
PT IS HIGH FALL RISK...FALL PREC IN PLACE..WALKER/GAIT BELT/O2 AND ASSIST..WILL MONITOR..FELT WEAK AND USED BEDPAN MUCH OF THE DAY...
[2019-05-22 03:29] VITALS: BP 117/62
[2019-05-22 04:27] LABS: HEMATOCRIT 32.6 % (37.0-47.0); HEMOGLOBIN 11.1 gm/dL (12.0-15.0); MCH 30.4 pg (26.0-34.0); MCHC 34.1 g/dL (28.0-37.0); MCV 89.2 fL (80.0-100.0); RBC 3.65 mil/uL (4.20-5.00); WBC 8.7 thou/uL (4.0-11.0)
[2019-05-22 05:23] LABS: CREATININE 5.2 mg/dL (0.6-1.0); POTASSIUM 4.2 mmol/L (3.5-5.1); TOTAL BILIRUBIN 0.5 mg/dL (<0.1-1.0); TOTAL PROTEIN 4.9 g/dL (6.4-8.2)
[2019-05-22 07:34] VITALS: BP 131/72
--- NOTE | 2019-05-22 07:52 | NUR ---
Pt. very anxious last night and has multiple concerns. At beginning of shift she feels like she is choking and had coughing episode. O2 titrated up to 4L/NC to maintain O2 sat amd RT notified. ARCHITECTURE DRAFTER also notified who ordered breathing tx for her which pt. stated it helped. CXR also ordered for this am. Medicated for pain on back ,neck and legs with some relief. She has been repositioned prn for comfort. Critical Na called to Yenny Anguiano NP. Renal physician also notified who stated he will see pt. this am. Will continue to monitor.
[2019-05-22 11:11] VITALS: BP 131/67
[2019-05-22 11:12] LABS: URINE CREATININE-RANDOM* 19.6 mg/dL; URINE PROTEIN-RANDOM* 51.1 mg/dL (<11.9)
[2019-05-22 15:37] VITALS: BP 127/68
--- NOTE | 2019-05-22 19:44 | NUR ---
PT VERY ANXIOUS THIS MORN..REPORTS SHE HAS NOT SLEPT...DR ORDERED A SMALL DOSE OF AMBIEN AND SHE WAS ABLE TO GET AROUND 2 HOURS SLEEP...FAMILY HAS BEEN SUPPORTING HER TODAY AND THEY ALL SPOKE WITH PATIENT AND DR CIFUENTES REGARDING HER WISHES OF DNR WITH NO DIALYSIS...SUPPORT GIVEN..
[2019-05-22 20:10] VITALS: BP 145/70
[2019-05-23 03:32] VITALS: BP 117/62
[2019-05-23 04:05] LABS: HEMATOCRIT 33.3 % (37.0-47.0); HEMOGLOBIN 11.4 gm/dL (12.0-15.0); MCH 30.6 pg (26.0-34.0); MCHC 34.3 g/dL (28.0-37.0); RBC 3.74 mil/uL (4.20-5.00); RDW 14.4 % (10.5-14.5); WBC 9.2 thou/uL (4.0-11.0)
[2019-05-23 04:19] LABS: ALBUMIN 2.1 g/dL (3.4-5.0); CALCIUM 6.2 mg/dL (8.5-10.1); CREATININE 5.9 mg/dL (0.6-1.0); POTASSIUM 4.5 mmol/L (3.5-5.1); TOTAL BILIRUBIN 0.4 mg/dL (<0.1-1.0); TOTAL PROTEIN 5.1 g/dL (6.4-8.2)
[2019-05-23 07:25] VITALS: BP 124/59
[2019-05-23 08:07] LABS: COMPLEMENT-C3 94 mg/dL (82-167); COMPLEMENT-C4 9 mg/dL (14-44)
[2019-05-23 08:16] VITALS: BP 124/59
--- NOTE | 2019-05-23 08:55 | NUR ---
PT MAKING POOR PROGRESS TOWARDS GOALS. NOTED SODIUM LEVEL CONTINUING TO FALL, CREAT CONTINUING TO RISE AND UOP FALLING. ONLY 38ML OF OUT PUT OVERNIGHT. PT NAUSEATED INITIALLY. ZOFRAN ONLY PROVIDED MINIMAL RELIEF. SECOND DOSE WITH COMPAZINE PROVIDED MORE MORE RELIEF PER PT. X1 DOSE OF FENTANYL FOR PAIN THIS AM. PT AGAIN DOSED WITH ZOFRAN OVERNIGHT AND BEING ANOTHER DOSE OF COMPAZINE FOR THE SAME REASONS AND RELIEF LISTED ABOVE. "I FEEL TERRIBLE. I JUST DON'T WANT TO DO THIS ANYMORE." SUPPORT GIVEN. INFORMED PT THAT THIS RN WOULD ASK DAY RN TO BRING UP THE TOPIC OF COMFORT CARE WITH THE PHYSICIANS. DID BRIEFLY EXPLAIN WHAT IT MEANS TO BE ON COMFORT CARE. PT DID SAY "YES, PLEASE TELL THEM I WANT TO TALK TO THE DOCTOR."
--- NOTE | 2019-05-23 12:56 | NUR ---
on-going assessment: CM REVIEWED CHART AND SPOKE WITH ATTENDING. ATTENDING FEELS PATIENT IS APPROPRIATE FOR HOSPICE HOUSE SHE IS NOT WANTING DIALYSIS. ATTENDING SPOKE WITH PATIENT AND HER DPOA/JAS [phone] AND THEY WANT A HOSPICE HOUSE EVAL. CM ALSO SPOKE WITH JAS (PALAK) AND HE WOULD LIKE REFERRAL SENT TO HOSPICE HOUSE AND THEM TO EVAL. HE WOULD LIKE TO BE THERE IF POSSIBLE WHEN THEY EVAL. CM REACHED OUT TO ABBIE AT HOSPICE TO NOTIFY HER AND SHE WILL CONTACT FAMILY TO ARRANGED. CM SENT REFERRAL.
[2019-05-23] MEDS ORDERED: COLACE 100 MG100 MG PO ×2 (13:42)
[2019-05-23] MEDS ORDERED: ACETAMINOPHEN325 M1 PO ×2 (13:42)
[2019-05-23] MEDS ORDERED: MSL20MG/ML SUBLING ×2 (13:42)
[2019-05-23] MEDS ORDERED: IPRAT-ALBUT 0.5-3 ML INH ×2 (13:42)
[2019-05-23] MEDS ORDERED: PEPCID20 MG PO ×2 (13:42)
[2019-05-23] MEDS ORDERED: LORAZEPAM I2 MG/1 M2 SUBLING ×2 (13:42)
--- NOTE | 2019-05-23 15:16 | NUR ---
PATIENT IS NOT A REHAB CANDIDATE. PATIENT HAS HAD A MEDICAL DECLINE AND PRODUCER DIRECTOR HAS REACHED OUT TO HOSPICE HOUSE PER PATIENT'S REQUEST.
--- NOTE | 2019-05-23 17:30 | NUR ---
PATIENT REQUESTED A DOSE OF ROXANOL WHICH WAS PULLED AND 10 MG WASTED @ 1730..PATIENT THEN DECLINED MEDS..EMS WAS SLATED TO ARRIVE @ [phone] SO I HELD ONTO ROXANOL. EMS WAS DELAYED SO ROXANIL WAS WASTED @ 1830..
--- NOTE | 2019-05-23 19:00 | NUR ---
THIS MORNING SPOKE WITH PATIENT AND FAMILY AND THEY REQUESTED PALLITIVE CARE..CONTACTED DR ROLAND AND OBTAINED HOSPICE HOUSE CONSULT..PALLITIVE CARE MEDS INITIATED THIS AFTERNOON...PATEINT EXPRESSED LEGS PAIN..BACK PAIN AND NAUSEA AND FEELING IF SHE MAY PASS OUT...FAMILY AND FRIENDS SUPPORTIVE...SPEECH EVAL OF PATIENT PLACED HER ON PUREE HONEY THICK DIET BUT SHE DID NOT FEEL LIKE SHE COULD TOLERATE FOOD...PRN MEDS GIVEN PER EMAR...
[2019-05-25 10:05] LABS: KAPPA/LAMBDA RATIO 1.56 (0.26-1.65); LAMBDA FREE LIGHT CHAINS 33.4 mg/L (5.7-26.3)
[2019-05-25 13:10] LABS: ANA INTERPRETATION Negative (Negative)
== END 2019-05-23 19:10 | disposition hospice, home (50) | DRG 682 ==
LOC: ER 10:01 → EROBS 11:36 → 3W 11:36
PROVIDERS: Emergency Medicine; Hospitalist; Internal Medicine Nephrology; Nurse Practitioner; ADMIT Hospitalist
DX: N17.0 Acute kidney failure with tubular necrosis (principal); E43 Unspecified severe protein-calorie malnutrition; E87.1 Hypo-osmolality and hyponatremia; E87.2 Acidosis; E86.0 Dehydration; I10 Essential (primary) hypertension; I48.91 Unspecified atrial fibrillation; Z96.642 Presence of left artificial hip joint; E78.5 Hyperlipidemia, unspecified; E87.6 Hypokalemia; E83.42 Hypomagnesemia; E86.9 Volume depletion, unspecified; D69.6 Thrombocytopenia, unspecified; Z90.49 Acquired absence of other specified parts of digestive tract; Z90.710 Acquired absence of both cervix and uterus; I25.2 Old myocardial infarction; Z79.1 Long term (current) use of non-steroidal anti-inflammatories (NSAID); Z79.899 Other long term (current) drug therapy; Z88.6 Allergy status to analgesic agent; Z88.2 Allergy status to sulfonamides; Z88.8 Allergy status to other drugs, medicaments and biological substances; Z88.7 Allergy status to serum and vaccine; Z66 Do not resuscitate
CPT/HCPCS: 10879